=== PATIENT | male | born 1955 | race Caucasian/White ===

== ENCOUNTER → 2018-04-11 | Outpatient (CLI) | payer MEDICARE ==
[~2018-04-11] MED LIST: AMBIEN5 MG PO; AMITRIPTYLINE H25 MG PO; BESIVANCE5 ML OD; DICLOFENAC SOD100 MG PO; DICLOFENAC SODI75 MG PO; HYDROCODONE PO; JANUMET 50-1,01 EACH PO; JANUMET PO; KEFLEX500 MG PO; LOVENOX30 MG/0.3 SC; LYRICA200 MG PO; METANX TABLET1 EACH PO; NEVANAC3 ML OD; NORCO 7.5-3251 EACH PO; VALIUM5 MG PO
--- NOTE | 2018-04-11 08:39 | Diagnostic Imaging Report ---
EXAM: Renal Ultrasound INDICATION: Nocturia COMPARISON: None TECHNIQUE: Transverse and longitudinal images of the kidneys and bladder were obtained. FINDINGS: Right Kidney: Length: Measures 11.8 x 5.4 x 5.4 cm Appearance: Normal echogenicity. Collecting system: No hydronephrosis Stones: None Cyst/Mass: None Left Kidney: Length: Measures 11.6 x 4.8 x 5.5 cm Appearance: Normal echogenicity. Collecting system: No hydronephrosis Stones: None Cyst/Mass: None Bladder: Unremarkable in appearance. Bilateral ureteral jets are present. Prostate: Prostatomegaly. Total prostate volume is 49.5 cc. IMPRESSION: No evidence of hydronephrosis or stone. Prostatomegaly. Signed by: Dr. Aram Green MD on 04/11/2018 8:36 AM
== END ==
LOC: US 07:28
PROVIDERS: ATTEND Urology
DX: R35.1 Nocturia (principal)
CPT/HCPCS: 76770

== ENCOUNTER → 2018-10-14 | Outpatient (CLI) | payer MEDICARE ==
[~2018-10-14] MED LIST changes: +GADOBENATE DIMEGLUMINE 1 ML IV ONE
[2018-10-14 08:05] LABS: CREATININE, SERUM 1.58 mg/dL (0.72-1.25)
--- NOTE | 2018-10-14 11:46 | Diagnostic Imaging Report ---
MRI of the right foot with and without contrast. History: Diabetes. Sores on bottom of feet and great toes. Ulcer. Necrosis. Decreased range of motion. Bone infection Technique: Multiplanar multisequence MRI of the foot with and without intravenous contrast. 20 cc IV gadolinium contrast material was administered Comparison: None Findings: No acute fracture, subluxation or avascular necrosis. Bipartite tibial sesamoid bone. Scattered degenerative changes are seen. No ligamentous or tendon tear is seen. The visualized neurovascular bundles are intact. The visualized muscles are normal in size, signal intensity and morphology. Skin thickening and apparent skin ulceration at the plantar aspect of the foot at the level of the distal first metatarsal and first toe. There is mild abnormal soft tissue contrast enhancement in the region. This could be due to to cellulitis. No focal fluid collection or abscess is seen. No underlying cortical destruction or focal bone marrow edema is seen to suggest osteomyelitis. Impression: Skin thickening and apparent skin ulceration at the plantar aspect of the foot at the level of the distal first metatarsal and first toe. There is mild abnormal soft tissue contrast enhancement in the region. This could be due to to cellulitis. No focal fluid collection or abscess is seen. No underlying cortical destruction or focal bone marrow edema is seen to suggest osteomyelitis. Signed by: Dr. Arnoldo Burns M.D. on 10/14/2018 11:43 AM
--- NOTE | 2018-10-14 11:52 | Diagnostic Imaging Report ---
MRI of the left foot with and without contrast. History: Diabetes. Sores on bottom of feet and great toes. Ulcer. Necrosis. Decreased range of motion. Bone infection Technique: Multiplanar multisequence MRI of the foot with and without intravenous contrast. 20 cc IV gadolinium contrast material was administered Comparison: None Findings: No acute fracture, subluxation or avascular necrosis. Scattered degenerative changes are seen. No ligamentous or tendon tear is seen. The visualized neurovascular bundles are intact. The visualized muscles are normal in size, signal intensity and morphology. Skin thickening and apparent skin ulceration at the plantar aspect of the foot at the level of the distal first metatarsal and first toe. There is moderate abnormal soft tissue contrast enhancement in the region. This could be due to to cellulitis. No focal fluid collection or abscess is seen. There is underlying focal bone marrow edema in the distal phalanx of the first toe as seen on sagittal image 25 and coronal image 9 worrisome for osteomyelitis. Impression: Skin thickening and apparent skin ulceration at the plantar aspect of the foot at the level of the distal first metatarsal and first toe. There is moderate abnormal soft tissue contrast enhancement in the region. This could be due to to cellulitis. This is more pronounced when compared with the right foot. No focal fluid collection or abscess is seen. There is underlying focal bone marrow edema in the distal phalanx of the first toe as seen on sagittal image 25 and coronal image 9 worrisome for osteomyelitis. Signed by: Dr. Arnoldo Burns M.D. on 10/14/2018 11:49 AM
== END ==
LOC: MRI 07:02
PROVIDERS: ATTEND Internal Medicine Infectious Disease
DX: E11.621 Type 2 diabetes mellitus with foot ulcer (principal); L97.513 Non-pressure chronic ulcer of other part of right foot with necrosis of muscle; I70.203 Unspecified atherosclerosis of native arteries of extremities, bilateral legs
CPT/HCPCS: 36415; 73720 ×2; 82565; 84520; 93925; A9577

== ENCOUNTER → 2018-10-26 | Outpatient (CLI) | payer MEDICARE ==
[~2018-10-26] MED LIST changes: -GADOBENATE DIMEGLUMINE 1 ML IV ONE
--- NOTE | 2018-10-26 11:39 | Diagnostic Imaging Report ---
Exam: Chest one view Clinical history: PICC insertion X Findings: A right arm PICC is noted with its tip overlying the cavoatrial junction. There is no evidence of pulmonary consolidation, pleural effusion, or pneumothorax. The cardiac size is within normal limits. The regional osseous structures are unremarkable. Signed by: Dr. Sandip Dupont MD on 10/26/2018 11:36 AM
== END ==
LOC: DX 10-25 07:57
PROVIDERS: ATTEND Internal Medicine Infectious Disease
DX: M86.9 Osteomyelitis, unspecified (principal)
CPT/HCPCS: 36569; 71045

== ENCOUNTER → 2019-09-07 | Outpatient (CLI) | payer MEDICARE | LOC: RAD 13:14 | PROVIDERS: ATTEND Internal Medicine Infectious Disease | DX: I82.B11 Acute embolism and thrombosis of right subclavian vein (principal); I82.611 Acute embolism and thrombosis of superficial veins of right upper extremity; R60.9 Edema, unspecified | CPT/HCPCS: 93971 ==

== ENCOUNTER → 2024-01-10 | Outpatient (REF) | payer MEDICARE | LOC: US 07:35 | PROVIDERS: ATTEND Urology | DX: N18.9 Chronic kidney disease, unspecified (principal) | CPT/HCPCS: 76770; 76857 ==